=== PATIENT | male | born 1955 | race Caucasian/White ===

== ENCOUNTER 2018-01-16 12:25 | Day surgery (SDC) | payer MEDICARE, BC ==
[2018-01-15 11:00] LABS: BASOPHILS % (AUTO) 0.4 % (0-1); EOSINOPHILS # (AUTO) 0.3 X10'3 (0-0.9); EOSINOPHILS % (AUTO) 3.8 % (0-6); LYMPHOCYTES # (AUTO) 1.9 X10'3 (1.1-4.8); LYMPHOCYTES % (AUTO) 28.2 % (21-51); MEAN CORPUSCULAR HEMOGLOBIN 29.8 PG (27.0-31.0); MEAN CORPUSCULAR HGB CONC 33.5 % (33.0-36.5); MEAN CORPUSCULAR VOLUME 88.9 FL (78-98); MEAN PLATELET VOLUME 9.9 FL (7.4-10.4); MONOCYTES # (AUTO) 0.7 X10'3 (0-0.9); MONOCYTES % (AUTO) 11.1 % (2-12); NEUTROPHILS # (AUTO) 3.8 X10'3 (1.8-7.7); NEUTROPHILS % (AUTO) 56.5 % (42-75); PRE OP HEMOGLOBIN 15.1 g/dL (14.0-17.9); PRE OP PLATELET COUNT 198 X10'3 (140-440); RED BLOOD COUNT 5.06 X10'6 (4.70-6.10); RED CELL DISTRIBUTION WIDTH 13.9 % (11.5-14.5)
[2018-01-15 11:21] LABS: ALBUMIN 3.7 G/DL (3.4-5.0); ALBUMIN/GLOBULIN RATIO 1.1 (1.1-1.5); ALKALINE PHOSPHATASE 67 IU/L (46-116); BLOOD UREA NITROGEN 12 MG/DL (7-18); BUN/CREATININE RATIO 14.3 (5.4-32.0); CALCIUM 9.4 MG/DL (8.5-10.1); CHLORIDE 101 MMOL/L (99-107); CREATININE 0.84 MG/DL (0.60-1.10); PRE OP ALT 32 U/L (30-65); PRE OP ANION GAP 6 (8-16); PRE OP AST 18 U/L (10-37); PRE OP BILIRUB, TOTAL 0.4 MG/DL (0.0-1.0); PRE OP GLUCOSE 95 MG/DL (70-104); PRE OP POTASSIUM 4.2 MMOL/L (3.4-5.1); PRE OP SODIUM 138 MMOL/L (135-145); TOTAL CARBON DIOXIDE 31.3 MMOL/L (24-32); TOTAL PROTEIN 7.1 G/DL (6.4-8.2); eGFR > 90 ML/MIN
[~2018-01-16] VITALS: Ht 175.3 cm; Wt 117.4 kg
[2018-01-16] VITALS (7 sets, daily range): BP systolic 121–138; BP diastolic 58–80
[~2018-01-16 12:25] MED LIST: GABA-532 PO; HYDR-3686 PO; HYDR-565 PO; LANS30CA56 PO; LEVO75TA PO; OXYB5TAB11 PO; SIMV20TA5 PO; ceFAZolin 2gm in dextrose, iso 100 ML IV ONE; famotidine 20mg tablet PO ONE; ringers solution, lacted 1,000 ML IV SCH; vancomycin inj 1,500 MG in normal saline 300ml IV soln IV ONE
[2018-01-16] MEDS ORDERED: LIDOcaine 1% (10mg/ml) 2ml vial ONE (12:35)
[2018-01-16] MEDS ORDERED: ROPIVAcaine 0.5% (5mg/ml) 30ml vial ONE (13:50)
[2018-01-16] MEDS ORDERED: sevoflurane 250ml liquid IH ONE (15:20)
[2018-01-16] MEDS ORDERED: ondansetron/PF 4mg/2ml inj ONE (15:20)
[2018-01-16] MEDS ORDERED: fentaNYL/PF 50MCG/1 ML 2ML syringe ONE (15:26)
[2018-01-16] MEDS ORDERED: midazolam 2 mg/2 ml injection ONE (15:26)
[2018-01-16] MEDS ORDERED: ringers solution, lacted 1,000 ML IV SCH (15:57)
[2018-01-16] MEDS ORDERED: proCHLORperazine 10 MG/2 ml inj IV PRN (16:00)
[2018-01-16] MEDS ORDERED: morphine 4 MG/ML inj SYRINge IV PRN ×2 (16:00)
[2018-01-16] MEDS ORDERED: ondansetron/PF 4mg/2ml inj IV PRN (16:00)
[2018-01-16] MEDS ORDERED: meperidine/PF 25mg/ml syringe IV PRN ×3 (16:00)
[2018-01-16] MEDS ORDERED: propofol inj 20 ML IV ONE (16:20)
[2018-01-16] MEDS ORDERED: LIDOcaine 2% (20mg/ml) 5ml vial ONE (16:20)
== END 2018-01-16 17:15 | disposition home or self-care (01) ==
LOC: PAS 12:25
PROVIDERS: ATTEND Orthopaedic Surgery
DX: M23.221 Derangement of posterior horn of medial meniscus due to old tear or injury, right knee (principal); M23.261 Derangement of other lateral meniscus due to old tear or injury, right knee; M17.11 Unilateral primary osteoarthritis, right knee; M65.861 Other synovitis and tenosynovitis, right lower leg; M25.761 Osteophyte, right knee; I10 Essential (primary) hypertension; E78.5 Hyperlipidemia, unspecified; I25.2 Old myocardial infarction; G89.29 Other chronic pain; E03.9 Hypothyroidism, unspecified; K21.9 Gastro-esophageal reflux disease without esophagitis; F32.9 Major depressive disorder, single episode, unspecified; Z98.84 Bariatric surgery status; Z79.891 Long term (current) use of opiate analgesic; Z90.89 Acquired absence of other organs; Z98.890 Other specified postprocedural states; Z79.899 Other long term (current) drug therapy
CPT/HCPCS: 29880; 36415; 80053; 84443; 85025; 93005; A6449; J0690; J2001; J2250; J2405; J2704; J2795; J3010; J3370; J3490; J7030; J7120; A7000

== ENCOUNTER 2022-02-08 08:00 | Inpatient (IN) | payer MEDICARE, BC ==
[2022-01-26 15:04] LABS: BASOPHILS # (AUTO) 0.1 X10'3 (0-0.2); EOSINOPHILS # (AUTO) 0.2 X10'3 (0-0.9); EOSINOPHILS % (AUTO) 3.3 % (0-6); LYMPHOCYTES # (AUTO) 2.1 X10'3 (1.1-4.8); LYMPHOCYTES % (AUTO) 29.3 % (21-51); MEAN CORPUSCULAR HEMOGLOBIN 29.7 PG (27.0-31.0); MEAN CORPUSCULAR HGB CONC 33.6 g/dL (33.0-36.5); MEAN CORPUSCULAR VOLUME 88.4 FL (78-98); MEAN PLATELET VOLUME 8.3 FL (7.4-10.4); MONOCYTES # (AUTO) 0.7 X10'3 (0-0.9); MONOCYTES % (AUTO) 9.5 % (2-12); NEUTROPHILS # (AUTO) 4.2 X10'3 (1.8-7.7); NEUTROPHILS % (AUTO) 56.9 % (42-75); PRE OP HEMATOCRIT 40.8 % (42.0-52.0); PRE OP HEMOGLOBIN 13.7 g/dL (14.0-17.9); PRE OP PLATELET COUNT 244 X10'3 (140-440); RED BLOOD COUNT 4.62 X10'6 (4.70-6.10); RED CELL DISTRIBUTION WIDTH 14.5 % (11.5-14.5)
[2022-01-26 15:18] LABS: ALBUMIN 3.7 G/DL (3.4-5.0); ALBUMIN/GLOBULIN RATIO 1.1 (1.1-1.5); ALKALINE PHOSPHATASE 66 IU/L (46-116); BLOOD UREA NITROGEN 12 MG/DL (7-18); BUN/CREATININE RATIO 18.2 (5.4-32.0); CALCIUM 8.9 MG/DL (8.5-10.1); CHLORIDE 106 MMOL/L (99-107); CREATININE 0.66 MG/DL (0.60-1.10); PRE OP ALT 11 U/L (30-65); PRE OP ANION GAP 9 (8-16); PRE OP AST 12 U/L (10-37); PRE OP BILIRUB, TOTAL 0.4 MG/DL (0.0-1.0); PRE OP GLUCOSE 90 MG/DL (70-104); PRE OP POTASSIUM 3.7 MMOL/L (3.4-5.1); PRE OP SODIUM 143 MMOL/L (135-145); TOTAL CARBON DIOXIDE 28.4 MMOL/L (24-32); TOTAL PROTEIN 7.1 G/DL (6.4-8.2); eGFR > 90 ML/MIN
[~2022-02-08] VITALS: Ht 172.7 cm; Wt 94.3 kg
[2022-02-08] VITALS (23 sets, daily range): BP systolic 92–133; BP diastolic 52–70
[~2022-02-08 08:00] MED LIST changes: +ALPR-624 PO; +CYCL-1 PO; -HYDR-3686 PO; +HYDR-4353 PO; -HYDR-565 PO; -LANS30CA56 PO; +LOPE2CAP PO; -OXYB5TAB11 PO; +OXYB5TAB16 PO; -SIMV20TA5 PO; -ceFAZolin 2gm in dextrose, iso 100 ML IV ONE; +ceFAZolin inj. 2,000 MG in dextrose 5%-water 100 ML IV ONE; +tranexamic acid inj. 1,000 MG in 0.7% saline 100 ML PMX IV ONE; +vancomycin 1,500 MG in NS 300ml IV soln IV ONE; -vancomycin inj 1,500 MG in normal saline 300ml IV soln IV ONE
--- NOTE | 2022-02-08 08:30 | NUR ---
PT WAS ABLE TO COMPLETE ALL 5 SHOWERS WITH OINTMENT ORDERED, DID NOT VIEW ONLINE INFO, +PULSE TO BLE
[2022-02-08] MEDS ORDERED: HYDROcodone/acetaminophen 10/325mg tab PO STA (09:34)
[2022-02-08] MEDS ORDERED: epiNEPHrine 1 mg/ml inj ONE (10:26)
[2022-02-08] MEDS ORDERED: ketorolac trometh. 30mg/ml inj. ONE (10:26)
[2022-02-08] MEDS ORDERED: ROPIVAcaine 0.5% (5mg/ml) 30ml vial ONE ×2 (10:27→13:50)
[2022-02-08] MEDS ORDERED: vancomycin 1,000mg inj ONE (10:27)
[2022-02-08] MEDS ORDERED: morphine 10mg/ml inj. ONE (10:27)
[2022-02-08] MEDS ORDERED: tetracaine 1% (10mg/ml) pres. free inj. ONE (10:57)
[2022-02-08] MEDS ORDERED: fentaNYL/PF 50MCG/1 ML 2ML syringe ONE (11:01)
[2022-02-08] MEDS ORDERED: MIDAZolam 1 MG/ML 5ML VIAL ONE (11:01)
[2022-02-08] MEDS ORDERED: morphine 2 MG/ML inj. syringe IV PRN (12:10)
[2022-02-08] MEDS ORDERED: meperidine/PF 25mg/ml syringe IV PRN ×3 (12:10)
[2022-02-08] MEDS ORDERED: ondansetron/PF 4mg/2ml inj IV PRN ×2 (12:10→14:50)
[2022-02-08] MEDS ORDERED: proCHLORperazine 10 MG/2 ml inj IV PRN (12:10)
[2022-02-08] MEDS ORDERED: morphine 4 MG/ML inj SYRINge IV PRN (12:10)
[2022-02-08] MEDS ORDERED: ROPIVAcaine 0.2% (10 MG/5 ML) BOLUS INJECTION ADDCANAL PRN (12:10)
[2022-02-08] MEDS ORDERED: ringers solution, lacted 1,000 ML IV SCH (12:10)
[2022-02-08] MEDS ORDERED: propofol inj 20 ML IV ONE ×2 (13:50→13:51)
--- NOTE | 2022-02-08 14:11 | NUR ---
Received from OR via [facility] , accompanied by Anesthesiologist SIMÓN and report given by Anesthesiolgist. PATIENT WITH ANTERIOR RIGHT KNEE WRAP THAT IS CDI. + DP PRESENT. DRESSING IS KNEE WRAP WITH POWDER PACK PRESENT. T 8 SENSATION LEVEL AT THIS TIME FROM SPINAL ANESTHESIA. Addendum: 02/08/22 at 1434 by Amos Aburto RN, RN Amended: Links added.
[2022-02-08] MEDS: ROPIVAcaine 0.2%/PF PUMP/bolus 545 ML ADDCANAL SCH (14:35)
[2022-02-08] MEDS ORDERED: naloxone 0.4 mg/ml inj IV PRN (14:50)
[2022-02-08] MEDS ORDERED: oxyCODONE IR 5mg (immed. release) tablet PO PRN (14:50)
[2022-02-08] MEDS ORDERED: HYDROmorphone 1 mg/ml syringe IV PRN (14:50)
[2022-02-08] MEDS ORDERED: HYDROmorphone inj. 0.5 MG/0.5 ML DISP.SYRIN IV PRN (14:50)
[2022-02-08] MEDS ORDERED: acetaminophen 325mg tablet PO PRN ×2 (14:50)
[2022-02-08] MEDS ORDERED: diphenhydrAMINE 25mg capsule PO PRN ×2 (14:50)
[2022-02-08] MEDS ORDERED: bisacodyl 10mg suppository rectal RC PRN (14:50)
[2022-02-08] MEDS ORDERED: magnesium hydroxide 30ml (MOM) UD suspension PO PRN (14:50)
[2022-02-08] MEDS: potassium cl 20mEq in 1/2 NS 1,000 ML IV SCH ×2 (14:50→22:50)
--- NOTE | 2022-02-08 16:01 | NUR ---
REPORT GIVEN AND ALL QUESTIONS ANSWERED. PATIENT TRANSFERRED TO SURG/ORTHO . LABELED BELONGINGS PRESENT AND DELIVERED TO ROOM. RN PRESENT ALL CRITERIA FOR TRANSFER BACK TO THE FLOOR HAS BEEN ACHIEVED. VSS. PAIN AT A TOLERABLE LEVEL. BED LOW, CALL LIGHT PRESENT AND 2 RAILS DOWN. RN AWARE THAT PATIENT HAS ARRIVED. TO ACCEPT CARE OF PATIENT.ONE BAG OF BELONGINGS PRESENT AND GLASSES ON PATIENT FACE. JOHN QUIGLEY PRESENT TO ACCEPT CARE OF PATIENT. Addendum: 02/08/22 at 1617 by Amos Lou - JOHN LOPEZ Amended: Links added.
[2022-02-08] MEDS ORDERED: HYDROcodone/acetaminophen 10/325mg tab PO PRN (16:35)
[2022-02-08] MEDS ORDERED: loperamide 2mg capsule PO PRN (16:35)
[2022-02-08] MEDS ORDERED: tranexamic acid inj. 940 MG in normal saline 100ml IV soln 100 ML IV ONE (17:00)
[2022-02-08] MEDS ORDERED: gabapentin 300mg capsule PO SCH (17:00)
--- NOTE | 2022-02-08 18:25 | NUR ---
Problems reprioritized. Patient report given, questions answered & plan of care reviewed with Mely.
[2022-02-08] MEDS: ceFAZolin/D5W- 1GM premix 50 ML IV SCH (18:40)
[2022-02-08] MEDS: ketorolac trometh. 30mg/ml inj. IV SCH (19:31)
[2022-02-08] MEDS: sennosides 8.6mg tablet PO SCH (19:35)
[2022-02-08] MEDS: acetaminophen 325mg tablet PO SCH (19:37)
[2022-02-08] MEDS: oxybutynin 5mg tablet PO SCH (19:38)
[2022-02-08] MEDS ORDERED: vancomycin/NS 1 GM ADD-VANTAGE 250 ML IV SCH (20:00)
[2022-02-08] MEDS: cyclobenzaprine 10mg tablet PO SCH (21:46)
[2022-02-08] MEDS: ALPRAZolam 0.5mg tablet PO SCH (21:46)
[2022-02-08] MEDS: gabapentin 300mg capsule PO SCH (21:46)
[2022-02-09] MEDS: ceFAZolin/D5W- 1GM premix 50 ML IV SCH (01:04)
[2022-02-09] MEDS: ketorolac trometh. 30mg/ml inj. IV SCH ×3 (02:09→13:43)
[2022-02-09] MEDS: acetaminophen 325mg tablet PO SCH ×4 (02:10→19:23)
[2022-02-09] MEDS: potassium cl 20mEq in 1/2 NS 1,000 ML IV SCH ×3 (03:51→19:41)
[2022-02-09] MEDS: oxyCODONE IR 5mg (immed. release) tablet PO PRN ×3 (04:54→21:27)
[2022-02-09 06:49] VITALS: BP 118/60
--- NOTE | 2022-02-09 06:49 | NUR ---
RECEIVED REPORT FROM KATERINA BORGES RN
[2022-02-09] MEDS: levoTHYROXINE 75mcg tablet PO SCH (08:48)
[2022-02-09] MEDS: gabapentin 300mg capsule PO SCH ×3 (08:48→21:25)
[2022-02-09] MEDS: cyclobenzaprine 10mg tablet PO SCH ×3 (08:48→21:26)
[2022-02-09] MEDS: enoxaparin 40mg/0.4ml syringe SQ SCH (08:50)
[2022-02-09 10:29] VITALS: BP 110/60
[2022-02-09 10:49] LABS: BASOPHILS % (AUTO) 0.5 % (0-1); EOSINOPHILS # (AUTO) 0.4 X10'3 (0-0.9); EOSINOPHILS % (AUTO) 4.6 % (0-6); HEMATOCRIT 35.3 % (42.0-52.0); HEMOGLOBIN 11.9 g/dl (14.0-17.9); LYMPHOCYTES # (AUTO) 0.9 X10'3 (1.1-4.8); LYMPHOCYTES % (AUTO) 10.8 % (21-51); MEAN CORPUSCULAR HEMOGLOBIN 29.9 PG (27.0-31.0); MEAN CORPUSCULAR HGB CONC 33.7 g/dL (33.0-36.5); MEAN CORPUSCULAR VOLUME 88.8 FL (78-98); MEAN PLATELET VOLUME 8.7 FL (7.4-10.4); NEUTROPHILS # (AUTO) 5.8 X10'3 (1.8-7.7); NEUTROPHILS % (AUTO) 72.1 % (42-75); PLATELET COUNT 201 X10'3 (140-440); RED BLOOD COUNT 3.97 X10'6 (4.70-6.10); RED CELL DISTRIBUTION WIDTH 14.5 % (11.5-14.5)
[2022-02-09 11:02] LABS: ALBUMIN 2.7 G/DL (3.4-5.0); ANION GAP 6 (8-16); BLOOD UREA NITROGEN 13 MG/DL (7-18); BUN/CREATININE RATIO 18.8 (5.4-32.0); CALCIUM 8.3 MG/DL (8.5-10.1); CHLORIDE 104 MMOL/L (99-107); CREATININE 0.69 MG/DL (0.60-1.10); GLUCOSE 89 MG/DL (70-104); POTASSIUM 4.1 MMOL/L (3.5-5.1); SODIUM 137 MMOL/L (135-145); TOTAL CARBON DIOXIDE 26.8 MMOL/L (24-32); eGFR > 90 ML/MIN
--- NOTE | 2022-02-09 12:48 | NUR ---
Joint surgery consult: Pt s/p R knee surgery this admit hx Cerebral Palsy uses cane in addition to bariatric surgery per EMR. Pt/SO seen by RD for written/verbal high protein diet ed w/ RD contact information provided. Pt unsure which bariatric surgery he had though reports takes routine MVI/mineral supplement and drinks premier proteins at home. RD encouraged pt/SO to contact dietitian's office if further questions/concerns. Addendum: 02/09/22 at [address] Amended: Links added.
[2022-02-09 13:20] VITALS: BP 87/67
--- NOTE | 2022-02-09 16:29 | NUR ---
lau catheter discontinued
[2022-02-09 18:00] VITALS: BP 107/59
--- NOTE | 2022-02-09 18:48 | NUR ---
report given to Dianna Bustamante RN
[2022-02-09] MEDS: sennosides 8.6mg tablet PO SCH (19:24)
[2022-02-09] MEDS: celeCOXIB 100mg capsule PO SCH (19:24)
[2022-02-09] MEDS: oxybutynin 5mg tablet PO SCH (19:24)
[2022-02-09] MEDS: ALPRAZolam 0.5mg tablet PO SCH (21:26)
[2022-02-09 22:00] VITALS: BP 118/62
[2022-02-10] MEDS: acetaminophen 325mg tablet PO SCH ×3 (02:00→13:47)
[2022-02-10 06:00] VITALS: BP 123/67
--- NOTE | 2022-02-10 06:30 | NUR ---
Problems reprioritized. Patient report given, questions answered & plan of care reviewed with SAY LOPEZ.
[2022-02-10] MEDS: potassium cl 20mEq in 1/2 NS 1,000 ML IV SCH (06:50)
--- NOTE | 2022-02-10 06:50 | NUR ---
Patient in room ORTHO 4020. I have received report from Dianna Bustamante RN and had the opportunity to ask questions and assume patient care.
[2022-02-10] MEDS: oxyCODONE IR 5mg (immed. release) tablet PO PRN (06:57)
[2022-02-10] MEDS: levoTHYROXINE 75mcg tablet PO SCH (08:35)
[2022-02-10] MEDS: celeCOXIB 100mg capsule PO SCH ×2 (08:36→20:57)
[2022-02-10] MEDS: gabapentin 300mg capsule PO SCH ×3 (08:37→21:02)
[2022-02-10] MEDS: cyclobenzaprine 10mg tablet PO SCH ×3 (08:37→20:56)
[2022-02-10] MEDS: enoxaparin 40mg/0.4ml syringe SQ SCH (08:38)
[2022-02-10] MEDS ORDERED: acetaminophen 325mg tablet PO PRN (14:50)
[2022-02-10 18:00] VITALS: BP 117/68
--- NOTE | 2022-02-10 18:00 | NUR ---
YARD ATTENDANT documentation: I have reviewed and agree with all interventions, assessments performed and documented by Trinidad Box LVN .
--- NOTE | 2022-02-10 18:27 | NUR ---
Problems reprioritized. Patient report given, questions answered & plan of care reviewed with Grace LOPEZ.
--- NOTE | 2022-02-10 18:38 | NUR ---
Patient in room ORTHO 4020. I have received report from SAY GARBER and had the opportunity to ask questions and assume patient care.
[2022-02-10] MEDS: ROPIVAcaine 0.2%/PF PUMP/bolus 545 ML ADDCANAL SCH (18:48)
[2022-02-10] MEDS: sennosides 8.6mg tablet PO SCH (20:56)
[2022-02-10] MEDS: ALPRAZolam 0.5mg tablet PO SCH (20:57)
[2022-02-10] MEDS: oxybutynin 5mg tablet PO SCH (20:57)
[2022-02-11 06:00] VITALS: BP 134/76
--- NOTE | 2022-02-11 06:30 | NUR ---
Problems reprioritized. Patient report given, questions answered & plan of care reviewed with SRINIVAS LOPEZ.
--- NOTE | 2022-02-11 06:35 | NUR ---
Patient in room ORTHO 4020. I have received report from MARIAELENA LOPEZ and had the opportunity to ask questions and assume patient care.
[2022-02-11] MEDS: celeCOXIB 100mg capsule PO SCH (07:40)
[2022-02-11] MEDS: cyclobenzaprine 10mg tablet PO SCH (07:40)
[2022-02-11] MEDS: levoTHYROXINE 75mcg tablet PO SCH (07:42)
[2022-02-11] MEDS: gabapentin 300mg capsule PO SCH (07:42)
[2022-02-11] MEDS: oxyCODONE IR 5mg (immed. release) tablet PO PRN (07:42)
[2022-02-11] MEDS: enoxaparin 40mg/0.4ml syringe SQ SCH (07:43)
[2022-02-11 10:00] VITALS: BP 106/67
--- NOTE | 2022-02-11 10:25 | NUR ---
CALLED REPORT TO [facility], AND TALKED TO DANYELLE LOPEZ.
--- NOTE | 2022-02-11 10:50 | NUR ---
PATIENT LEFT WITH TRANSPORT TO [facility] WITH BELONGINGS CANE, PHONE AND CLOTHES.
== END 2022-02-11 10:50 | DRG 470 ==
LOC: PAS IN 08:00 → ORTHO 4S 16:10
PROVIDERS: ADMIT Orthopaedic Surgery; ATTEND Orthopaedic Surgery
PROC: 3E0T3BZ Introduction of Anesthetic Agent into Peripheral Nerves and Plexi, Percutaneous Approach (ICD-10-PCS; 2022-02-08)
PROC: 0SRC0J9 Replacement of Right Knee Joint with Synthetic Substitute, Cemented, Open Approach (ICD-10-PCS; principal; 2022-02-08 11:01)
DX: M17.11 Unilateral primary osteoarthritis, right knee (principal)
CPT/HCPCS: 36415; 73560; 80048; 80053; 82948; 85025; 87081; 97034; 97110; 97116; 97162; 97530; A4215; A6446; A7000; C1713; C1758; C1776; C9250; G0378; J0171; J0690; J1650; J1885; J2250; J2274; J2704; J2795; J3010; J3370; J3480; J3490; J7040; J7060; J7120; Q0163

== ENCOUNTER 2022-11-23 12:50 | Emergency (ER) | payer MEDICARE, BC ==
[~2022-11-23] VITALS: Ht 172.7 cm; Wt 79.5 kg
[~2022-11-23 12:50] MED LIST changes: -ALPR-624 PO; +ALPR1TAB2 PO; -GABA-532 PO; +GABA600T13 PO; +OMEP40CA21 PO; +OXYB15TA19 PO; -OXYB5TAB16 PO; +SIMV-42 PO; -ceFAZolin inj. 2,000 MG in dextrose 5%-water 100 ML IV ONE; -famotidine 20mg tablet PO ONE; -ringers solution, lacted 1,000 ML IV SCH; -tranexamic acid inj. 1,000 MG in 0.7% saline 100 ML PMX IV ONE; -vancomycin 1,500 MG in NS 300ml IV soln IV ONE
--- NOTE | 2022-11-23 13:37 | NUR ---
PT PRESENTS WITH CHRONIC BACK PAIN STATES " MY NURSE THAT WAS AT MY HOUSE TODAY SAID I SHOULD COME IN AND GET REFERRAL TO PHYSICAL THERAPY."
--- NOTE | 2022-11-23 16:02 | NUR ---
TIM JEFFREY CALLED [facility] REGARDING TRANSPORTATION HOME FOR PATIENT. [facility] REPORTS HAVING NO AVAILABLE UNITS TO TRANSPORT PATIENT. TMI JEFFREY CALLED [facility] ([place]) FOR TRANSPORATION. [facility] STATED THEY WOULD CONTACT US BACK WHEN THEY WERE AVAILABLE.
--- NOTE | 2022-11-23 16:05 | NUR ---
[facility] EST TIME OF ARRIVAL 1830 FOR TRANSPORTATION OF PATIENT.
[2022-11-23 17:33] VITALS: BP 117/68
== END 2022-11-23 17:35 | disposition home or self-care (01) ==
LOC: ER 12:51
DX: G89.29 Other chronic pain (principal); M54.9 Dorsalgia, unspecified; R53.1 Weakness; Z79.899 Other long term (current) drug therapy; Z79.1 Long term (current) use of non-steroidal anti-inflammatories (NSAID); Z79.2 Long term (current) use of antibiotics
CPT/HCPCS: 99284

== ENCOUNTER 2023-05-15 10:51 | Inpatient (IN) | payer MEDICARE, BC ==
[~2023-05-15] VITALS: Ht 172.7 cm; Wt 102.3 kg
[~2023-05-15 10:51] MED LIST changes: +ALPR0.5T8 PO; +ALPR0.5T9 PO; -ALPR1TAB2 PO; +CHOL10008 PO; +CYAN-50 PO; -CYCL-1 PO; -HYDR-4353 PO; -LEVO75TA PO; +LEVO88TA7 PO; +MULT-1085 PO; +OMEP20CA16 PO; -OMEP40CA21 PO; -SIMV-42 PO; +SIMV-45 PO
--- NOTE | 2023-05-15 14:25 | NUR ---
Rec'd referral that pt is requesting to return to his rehab facility from which he was just dc'd a few days ago. Per EMR, pt was sent to [facility] in 01/2023, contacted their liason to see if pt was w/ them until recently. Awaiting response.
--- NOTE | 2023-05-15 15:12 | NUR ---
SPOKE WITH PT'S DAUGHTER, BEA, PLEASE CALL HER FOR PT PICKUP AT TIME OF DISCHARGE. INFO IN DEMOGRAPHICS
--- NOTE | 2023-05-15 15:22 | NUR ---
Rec'd callback from Cassandra at [facility]. She confirms that pt just dc'd from them late last week after being there since 02/07/2023. She also informs me that pt has only 5 rehab day benefit left. Despite this they are willing to take him back, their business office will work w/ pt's to apply for [employer] for LT care. She does not have a male bed this afternoon but is 99% sure she will have one tomorrow and can take him then. Went to ER and met w/ pt at the bedside. Pt appears severely debilitated, c/o of extreme pain, worse it's been for a long time. He also reports he had a recent fall from his bed since his discharge where he was unable to get up and the fire dept was called to get him back in bed. Pain has progressively gotten worse since then. I spoke w/ pt's nurse Jeronimo and informed him (in case he didn't know) of pt's recent fall and asked him to speak w/ MD regarding some imaging studies to just to make sure no new issues have occurred. Jeronimo says he will. Called Cassandra back at [facility] and made her aware of my interview w/ zack pt. She remains agreeable to taking pt back tomorrow once her male bed opens up. Continue to monitor.
--- NOTE | 2023-05-15 15:25 | NUR ---
FORTUNATO WHITMORE ADVISES THAT [facility] IS AGREEAABLE IN TAKING THE PT BACK TOMORROW, PROVIDER ORDERED HEAD CT TO R/O ACUTE CHANGES D/T REPORTED FALL AT HOME
[2023-05-15] MEDS ORDERED: HYDROcodone/acetaminophen 10/325mg tab PO ONE (18:20)
[2023-05-15 20:26] LABS: BILIRUBIN,URINE NEGATIVE (Neg); CLARITY,URINE CLOUDY (Clear); COLOR,URINE YELLOW (Yellow); GLUCOSE, URINE NEGATIVE (Neg); KETONES,URINE NEGATIVE (Neg); LEUKOCYTE ESTERASE ,URINE NEGATIVE (Neg); NITRITES, URINE NEGATIVE (Neg); OCCULT BLOOD,URINE NEGATIVE (Neg); PH,URINE 5.5 (4.8-8.0); PROTEIN,URINE TRACE mg/dl (Neg)
[2023-05-15 20:40] LABS: UA COLLECTION TYPE CLN CATCH MIDSTREAM
[2023-05-15 20:41] LABS: BACTERIA,URINE 4+ /HPF (Neg); RBC,URINE 0-2 /HPF (0-2)
[2023-05-15 20:42] LABS: MUCUS STRANDS FEW /LPF (Neg); TRANSITIONAL EPI CELLS,URINE FEW /HPF
[2023-05-15 20:43] LABS: SQUAMOUS EPITHELIAL CELL,UR MODERATE /LPF (FEW)
[2023-05-15 20:50] LABS: URINE AMPHETAMINE SCREEN NEGATIVE (Neg); URINE BARBITUATE SCREEN NEGATIVE (Neg); URINE BENZODIAZEPINES SCREEN POSITIVE (Neg); URINE CANNABINOID SCREEN POSITIVE (Neg); URINE COCAINE SCREEN NEGATIVE (Neg); URINE OPIATE SCREEN POSITIVE (Neg); URINE PHENCYCLIDINE SCREEN NEGATIVE (Neg)
[2023-05-15 21:00] LABS: BASOPHILS # (AUTO) 0.1 X10'3 (0-0.2); BASOPHILS % (AUTO) 1.3 % (0-1); EOSINOPHILS # (AUTO) 0.2 X10'3 (0-0.9); EOSINOPHILS % (AUTO) 3.5 % (0-6); HEMATOCRIT 37.1 % (42.0-52.0); HEMOGLOBIN 12.4 g/dl (14.0-17.9); LYMPHOCYTES # (AUTO) 1.9 X10'3 (1.1-4.8); LYMPHOCYTES % (AUTO) 32.1 % (21-51); MEAN CORPUSCULAR HEMOGLOBIN 29.5 PG (27.0-31.0); MEAN CORPUSCULAR HGB CONC 33.4 g/dL (33.0-36.5); MEAN CORPUSCULAR VOLUME 88.3 FL (78-98); MONOCYTES # (AUTO) 0.7 X10'3 (0-0.9); MONOCYTES % (AUTO) 12.6 % (2-12); NEUTROPHILS % (AUTO) 50.5 % (42-75); PLATELET COUNT 343 X10'3 (140-440); RED BLOOD COUNT 4.19 X10'6 (4.70-6.10); RED CELL DISTRIBUTION WIDTH 14.4 % (11.5-14.5); WHITE BLOOD COUNT 5.9 X10'3 (4.5-11.0)
[2023-05-15 21:15] LABS: ALANINE AMINOTRANSFERASE 19 U/L (12-78); ALBUMIN 2.9 G/DL (3.4-5.0); ALBUMIN/GLOBULIN RATIO 0.7 (1.1-1.5); ALKALINE PHOSPHATASE 66 IU/L (46-116); ANION GAP 5 (8-16); ASPARTATE AMINO TRANSFERASE 28 U/L (10-37); BILIRUBIN,TOTAL 0.6 MG/DL (0.1-1.0); BLOOD UREA NITROGEN 13 MG/DL (7-18); BUN/CREATININE RATIO 22.4 (10.0-20.0); CALCIUM 9.2 MG/DL (8.5-10.1); CHLORIDE 103 MMOL/L (99-107); CREATININE 0.58 MG/DL (0.60-1.10); GLUCOSE 107 MG/DL (70-104); POTASSIUM 3.1 MMOL/L (3.5-5.1); SODIUM 140 MMOL/L (135-145); TOTAL CARBON DIOXIDE 31.6 MMOL/L (24-32); TOTAL PROTEIN 7.1 G/DL (6.4-8.2); eCRCL 115 ML/MIN; eGFR > 90 ML/MIN
[2023-05-15 21:21] LABS: ETHANOL < 10 MG/DL (<10)
[2023-05-16] MEDS ORDERED: morphine 2 MG/ML inj. syringe IV PRN ×3 (00:55→02:40)
[2023-05-16] MEDS ORDERED: ondansetron/PF 4mg/2ml inj IV PRN (02:40)
[2023-05-16] MEDS ORDERED: diphenhydrAMINE 25mg capsule PO PRN (02:40)
[2023-05-16] MEDS ORDERED: potassium Cl 40MEQ/1/2NS 520ml 520 ML IV PRN (02:40)
[2023-05-16] MEDS ORDERED: ondansetron 4mg rapidly disintigrating tab PO PRN (02:40)
[2023-05-16] MEDS ORDERED: potassium Cl 20 mEq SR tablet PO PRN (02:40)
[2023-05-16] MEDS ORDERED: normal saline 1000ml 1,000 ML IV SCH (02:40)
[2023-05-16] MEDS ORDERED: acetaminophen 325mg tablet PO PRN ×2 (02:40)
[2023-05-16] MEDS ORDERED: mag hydrox/Alum hydrox/simeth 30ml oral suspension PO PRN (02:40)
[2023-05-16] MEDS ORDERED: diphenhydrAMINE 50 mg/ml inj IV PRN (02:40)
[2023-05-16] MEDS ORDERED: magnesium hydroxide 30ml (MOM) UD suspension PO PRN (02:40)
[2023-05-16] MEDS ORDERED: acetaminophen 650mg rectal suppository RC PRN (02:40)
[2023-05-16] MEDS ORDERED: potassium Cl 20mEq in NS 1,000 ML IV SCH (02:40)
[2023-05-16] MEDS ORDERED: bisacodyl 10mg suppository rectal RC PRN (02:40)
[2023-05-16] MEDS ORDERED: temazepam 15mg capsule PO STA (03:19)
[2023-05-16 07:00] VITALS: BP 109/67; PULSE 85; RESP 16; TEMP 97.8; O2SAT 95
--- NOTE | 2023-05-16 07:09 | NUR ---
Patient in room ED 16. I have received report from Doc del toro and had the opportunity to ask questions and aWAITING PATIENTS ARRIVAL
--- NOTE | 2023-05-16 07:15 | NUR ---
Report called to JOHN Ragland on Ortho. Patient transferred upstairs on [facility] with all belongings.
[2023-05-16] MEDS ORDERED: K and/or MAG REPLACEMENT MC SCH (08:00)
[2023-05-16] MEDS ORDERED: CefTRIAXone/D5W-Rocephin 1gm 50 ML IV SCH (08:00)
[2023-05-16] MEDS ORDERED: docusate sod 100mg capsule PO SCH (08:00)
[2023-05-16] MEDS ORDERED: heparin, porcine 5000 units/ml vial SQ SCH (08:00)
[2023-05-16] MEDS: midodrine 5mg tablet PO SCH ×2 (08:42→12:33)
[2023-05-16] MEDS: potassium Cl 20 mEq SR tablet PO PRN ×2 (08:47→14:09)
[2023-05-16] MEDS: HYDROcodone/acetaminophen 5mg/325mg tablet PO PRN ×2 (08:48→14:09)
[2023-05-16 09:37] LABS: APTT 33 SECONDS (22-32); PROTHROMBIN TIME 10.9 SECONDS (9.0-12.0)
[2023-05-16 10:00] VITALS: BP 117/51; PULSE 70; RESP 16; TEMP 97.9; O2SAT 94
[2023-05-16 10:47] LABS: FREE T4 (FREE THYROXINE) 1.01 NG/DL (0.73-1.40); MAGNESIUM 2.3 MG/DL (1.5-2.4); PHOSPHORUS 3.2 MG/DL (2.3-4.5); POTASSIUM 3.1 MMOL/L (3.5-5.1); THYROID STIMULATING HORMONE 16.92 ulU/ml (0.34-4.50)
[2023-05-16] MEDS ORDERED: loperamide 2mg capsule PO PRN (11:45)
--- NOTE | 2023-05-16 12:36 | NUR ---
Immodium given for copious amounts of brownish soft diarrhea. Dr Baker aware
[2023-05-16 14:09] VITALS: RESP 16
--- NOTE | 2023-05-16 15:11 | NUR ---
Patient given Immodium and norco x2 during shift. Appeared to slow down with BM's. Report called to Radha GARBER at [facility]. patient transported via [facility] and [employer] personnel to [facility] in stable condition. had been present during shift.
[2023-05-16] MEDS ORDERED: temazepam 15mg capsule PO PRN (21:00)
== END 2023-05-16 14:15 | DRG 641 ==
LOC: ER 10:51 → ED HOLD 05-16 02:42 → ORTHO 4S 05-16 07:47
PROVIDERS: ADMIT Family Medicine; ATTEND Internal Medicine
DX: E87.6 Hypokalemia (principal); N39.0 Urinary tract infection, site not specified; I50.32 Chronic diastolic (congestive) heart failure; D64.9 Anemia, unspecified; E03.9 Hypothyroidism, unspecified; E78.5 Hyperlipidemia, unspecified; E86.1 Hypovolemia; E88.09 Other disorders of plasma-protein metabolism, not elsewhere classified; F41.1 Generalized anxiety disorder; M54.50 Low back pain, unspecified; I95.9 Hypotension, unspecified; G80.9 Cerebral palsy, unspecified; G89.4 Chronic pain syndrome; I11.0 Hypertensive heart disease with heart failure; N32.81 Overactive bladder; Z80.1 Family history of malignant neoplasm of trachea, bronchus and lung; Z82.0 Family history of epilepsy and other diseases of the nervous system; Z85.118 Personal history of other malignant neoplasm of bronchus and lung
CPT/HCPCS: 36415; 70450; 71045; 80053; 80305; 80320; 81001; 82140; 83735; 83880; 84100; 84132; 84439; 84443; 84481; 84484; 85025; 85610; 85730; 87088; 99285; A4349; G0378; J1644; J2270; J3480; J7030

== ENCOUNTER 2023-09-17 12:50 | Inpatient (IN) | payer MEDICARE, BC, MEDICAID ==
[~2023-09-17] VITALS: Ht 172.7 cm; Wt 118.4 kg
[2023-09-17 14:02] LABS: BASOPHILS # (AUTO) 0.1 X10'3 (0-0.2); BASOPHILS % (AUTO) 0.8 % (0-1); EOSINOPHILS # (AUTO) 0.5 X10'3 (0-0.9); EOSINOPHILS % (AUTO) 6.2 % (0-6); LYMPHOCYTES # (AUTO) 1.4 X10'3 (1.1-4.8); LYMPHOCYTES % (AUTO) 19.1 % (21-51); MEAN CORPUSCULAR HEMOGLOBIN 29.2 PG (27.0-31.0); MEAN CORPUSCULAR HGB CONC 32.4 g/dL (33.0-36.5); MEAN CORPUSCULAR VOLUME 90.3 FL (78-98); NEUTROPHILS # (AUTO) 4.5 X10'3 (1.8-7.7); NEUTROPHILS % (AUTO) 60.9 % (42-75); PLATELET COUNT 272 X10'3 (140-440); RED CELL DISTRIBUTION WIDTH 15.4 % (11.5-14.5); WHITE BLOOD COUNT 7.3 X10'3 (4.5-11.0)
[2023-09-17 15:10] LABS: ANION GAP 8 (8-16); BLOOD UREA NITROGEN 22 MG/DL (7-18); BUN/CREATININE RATIO 36.7 (10.0-20.0); CALCIUM 7.1 MG/DL (8.5-10.1); CHLORIDE 111 MMOL/L (99-107); GLUCOSE 70 MG/DL (70-104); POTASSIUM 3.7 MMOL/L (3.5-5.1); PRO BRAIN NATRIURETIC PEPTIDE 61 PG/ML (0-125); SODIUM 147 MMOL/L (135-145); TOTAL CARBON DIOXIDE 27.9 MMOL/L (24-32); eCRCL 111 ML/MIN; eGFR > 90 ML/MIN
[2023-09-17] MEDS: normal saline 1000ml 1,000 ML IV ONE (19:15)
[2023-09-17] MEDS: dexamethasone sod phosphate 10mg/ml inj IV STA (19:23)
[2023-09-17] MEDS: morphine 4 MG/ML inj SYRINge IV ONE (19:24)
[2023-09-17] MEDS ORDERED: magnesium hydroxide 30ml (MOM) UD suspension PO PRN (21:00)
[2023-09-17] MEDS ORDERED: magnesium 4gm in 100ml NS 100 ML IV PRN (21:00)
[2023-09-17] MEDS ORDERED: ondansetron/PF 4mg/2ml inj IV PRN (21:00)
[2023-09-17] MEDS ORDERED: mag hydrox/Alum hydrox/simeth 30ml oral suspension PO PRN (21:00)
[2023-09-17] MEDS ORDERED: potassium Cl 20 mEq SR tablet PO PRN ×2 (21:00)
[2023-09-17] MEDS ORDERED: morphine 2 MG/ML inj. syringe IV PRN (21:00)
[2023-09-17] MEDS ORDERED: acetaminophen 325mg tablet PO PRN ×2 (21:00)
[2023-09-17] MEDS ORDERED: potassium Cl 40MEQ/1/2NS 520ml 520 ML IV PRN (21:00)
[2023-09-17] MEDS ORDERED: HYDROcodone/acetaminophen 5mg/325mg tablet PO PRN (21:00)
[2023-09-17] MEDS ORDERED: magnesium Cl slow-release 64mg tablet PO PRN (21:00)
[2023-09-17] MEDS ORDERED: magnesium 2GM in 50ml NS 50 ML IV PRN (21:00)
[2023-09-17 21:09] LABS: ALANINE AMINOTRANSFERASE 16 U/L (12-78); ALBUMIN/GLOBULIN RATIO 0.9 (1.1-1.5); ALKALINE PHOSPHATASE 74 IU/L (46-116); ANION GAP 2 (8-16); ASPARTATE AMINO TRANSFERASE 16 U/L (10-37); BILIRUBIN,TOTAL 0.3 MG/DL (0.1-1.0); BLOOD UREA NITROGEN 23 MG/DL (7-18); BUN/CREATININE RATIO 37.1 (10.0-20.0); CALCIUM 8.2 MG/DL (8.5-10.1); CHLORIDE 109 MMOL/L (99-107); CREATININE 0.62 MG/DL (0.60-1.10); GLUCOSE 103 MG/DL (70-104); SODIUM 145 MMOL/L (135-145); TOTAL CARBON DIOXIDE 33.6 MMOL/L (24-32); TOTAL PROTEIN 6.4 G/DL (6.4-8.2); eCRCL 107 ML/MIN; eGFR > 90 ML/MIN
[2023-09-18] VITALS (11 sets, daily range): BP systolic 104–167; BP diastolic 41–103; PULSE 59–88; RESP 12–20; TEMP 97–98.1; O2SAT 92–96
[2023-09-18] MEDS: HYDROcodone/acetaminophen 10/325mg tab PO PRN (00:33)
[2023-09-18 00:36] LABS: BILIRUBIN,URINE NEGATIVE (Neg); CLARITY,URINE CLOUDY (Clear); COLOR,URINE YELLOW (Yellow); GLUCOSE, URINE NEGATIVE (Neg); KETONES,URINE NEGATIVE (Neg); LEUKOCYTE ESTERASE ,URINE NEGATIVE (Neg); NITRITES, URINE NEGATIVE (Neg); OCCULT BLOOD,URINE NEGATIVE (Neg); PROTEIN,URINE NEGATIVE (Neg); UROBILINOGEN,URINE 0.2 E.U/dL (0.2-1.0)
[2023-09-18 00:37] LABS: UA COLLECTION TYPE VOIDED
[2023-09-18 00:43] LABS: RBC,URINE 0-2 /HPF (0-2)
[2023-09-18 00:44] LABS: BACTERIA,URINE 4+ /HPF (Neg); MUCUS STRANDS FEW /LPF (Neg); SQUAMOUS EPITHELIAL CELL,UR FEW /LPF (FEW)
[2023-09-18 01:04] LABS: URINE AMPHETAMINE SCREEN NEGATIVE (Neg); URINE BARBITUATE SCREEN NEGATIVE (Neg); URINE BENZODIAZEPINES SCREEN POSITIVE (Neg); URINE CANNABINOID SCREEN NEGATIVE (Neg); URINE COCAINE SCREEN NEGATIVE (Neg); URINE METHADONE SCREEN NEGATIVE (Neg); URINE OPIATE SCREEN POSITIVE (Neg); URINE PHENCYCLIDINE SCREEN NEGATIVE (Neg)
[2023-09-18] MEDS: ringers solution, lacted 1,000 ML IV SCH (01:11)
[2023-09-18 06:15] LABS: HEMOGLOBIN 12.4 g/dl (14.0-17.9); MEAN CORPUSCULAR HEMOGLOBIN 29.3 PG (27.0-31.0)
[2023-09-18 06:19] LABS: BASOPHILS % (AUTO) 0.4 % (0-1); EOSINOPHILS % (AUTO) 0.1 % (0-6); HEMATOCRIT 37.8 % (42.0-52.0); LYMPHOCYTES # (AUTO) 0.8 X10'3 (1.1-4.8); MEAN CORPUSCULAR HGB CONC 32.7 g/dL (33.0-36.5); MEAN CORPUSCULAR VOLUME 89.4 FL (78-98); MEAN PLATELET VOLUME 8.6 FL (7.4-10.4); MONOCYTES # (AUTO) 0.1 X10'3 (0-0.9); MONOCYTES % (AUTO) 1.2 % (2-12); NEUTROPHILS # (AUTO) 5.6 X10'3 (1.8-7.7); NEUTROPHILS % (AUTO) 86.3 % (42-75); PLATELET COUNT 293 X10'3 (140-440); RED BLOOD COUNT 4.22 X10'6 (4.70-6.10); RED CELL DISTRIBUTION WIDTH 15.1 % (11.5-14.5); WHITE BLOOD COUNT 6.5 X10'3 (4.5-11.0)
[2023-09-18 06:22] LABS: HEMOGLOBIN A1C 5.7 % (4.5-6.2)
[2023-09-18 06:29] LABS: APTT 34 SECONDS (22-32); PROTHROMBIN TIME 10.6 SECONDS (9.0-12.0)
[2023-09-18 06:43] LABS: ALANINE AMINOTRANSFERASE 16 U/L (12-78); ALBUMIN/GLOBULIN RATIO 0.8 (1.1-1.5); ALKALINE PHOSPHATASE 78 IU/L (46-116); ANION GAP 7 (8-16); ASPARTATE AMINO TRANSFERASE 11 U/L (10-37); BILIRUBIN,TOTAL 0.3 MG/DL (0.1-1.0); BLOOD UREA NITROGEN 23 MG/DL (7-18); BUN/CREATININE RATIO 33.3 (10.0-20.0); CALCIUM 8.5 MG/DL (8.5-10.1); CHLORIDE 106 MMOL/L (99-107); CHOL/HDL RATIO 2.5 (0.00-4.99); CHOLESTEROL 152 MG/DL (0-200); CREATININE 0.69 MG/DL (0.60-1.10); FREE T4 (FREE THYROXINE) 0.68 NG/DL (0.73-1.40); GLUCOSE 148 MG/DL (70-104); HDL CHOLESTEROL 62 MG/DL (35-60); LDL CHOLESTEROL 76 MG/DL (50-100); MAGNESIUM 2.2 MG/DL (1.5-2.4); PHOSPHORUS 2.8 MG/DL (2.3-4.5); POTASSIUM 4.3 MMOL/L (3.5-5.1); SODIUM 140 MMOL/L (135-145); THYROID STIMULATING HORMONE 2.72 ulU/ml (0.34-4.50); TOTAL CARBON DIOXIDE 26.8 MMOL/L (24-32); TOTAL PROTEIN 6.8 G/DL (6.4-8.2); TRIGLYCERIDES 54 MG/DL (20-135); eCRCL 96 ML/MIN; eGFR > 90 ML/MIN
[2023-09-18] MEDS: docusate sod 100mg capsule PO SCH (07:52)
[2023-09-18] MEDS: pantoprazole 40mg Tablet.DR PO SCH (07:52)
[2023-09-18] MEDS: enoxaparin 40mg/0.4ml syringe SUBCUT SCH (07:53)
[2023-09-18] MEDS: K and/or MAG REPLACEMENT MC SCH (08:00)
[2023-09-18] MEDS: atorvastatin 20mg tablet PO SCH (21:10)
[2023-09-19] VITALS (11 sets, daily range): BP systolic 101–155; BP diastolic 47–112; PULSE 11–74; RESP 14–18; TEMP 97.4–98.7; O2SAT 94–98
[2023-09-19] MEDS: pantoprazole 40mg Tablet.DR PO SCH (08:00)
[2023-09-19 08:39] LABS: BASOPHILS % (AUTO) 0.1 % (0-1); EOSINOPHILS % (AUTO) 0.1 % (0-6); HEMATOCRIT 33.7 % (42.0-52.0); HEMOGLOBIN 11.2 g/dl (14.0-17.9); LYMPHOCYTES # (AUTO) 1.6 X10'3 (1.1-4.8); LYMPHOCYTES % (AUTO) 14.2 % (21-51); MEAN CORPUSCULAR HEMOGLOBIN 29.7 PG (27.0-31.0); MEAN CORPUSCULAR HGB CONC 33.3 g/dL (33.0-36.5); MEAN CORPUSCULAR VOLUME 89.1 FL (78-98); MEAN PLATELET VOLUME 9.1 FL (7.4-10.4); MONOCYTES # (AUTO) 0.8 X10'3 (0-0.9); NEUTROPHILS # (AUTO) 8.8 X10'3 (1.8-7.7); NEUTROPHILS % (AUTO) 78.6 % (42-75); PLATELET COUNT 267 X10'3 (140-440); RED BLOOD COUNT 3.78 X10'6 (4.70-6.10); RED CELL DISTRIBUTION WIDTH 14.9 % (11.5-14.5); WHITE BLOOD COUNT 11.2 X10'3 (4.5-11.0)
[2023-09-19 08:52] LABS: APTT 31 SECONDS (22-32); PROTHROMBIN TIME 10.6 SECONDS (9.0-12.0)
[2023-09-19] MEDS: levoTHYROXINE 88mcg tablet PO SCH (09:00)
[2023-09-19] MEDS: cyanocobalamin 500mcg tablet PO SCH (09:01)
[2023-09-19 10:56] LABS: ALANINE AMINOTRANSFERASE 15 U/L (12-78); ALBUMIN 2.9 G/DL (3.4-5.0); ALBUMIN/GLOBULIN RATIO 0.9 (1.1-1.5); ALKALINE PHOSPHATASE 62 IU/L (46-116); ANION GAP 6 (8-16); ASPARTATE AMINO TRANSFERASE 9 U/L (10-37); BILIRUBIN,TOTAL 0.2 MG/DL (0.1-1.0); BLOOD UREA NITROGEN 20 MG/DL (7-18); BUN/CREATININE RATIO 31.7 (10.0-20.0); CALCIUM 8.5 MG/DL (8.5-10.1); CHLORIDE 106 MMOL/L (99-107); CREATININE 0.63 MG/DL (0.60-1.10); GLUCOSE 110 MG/DL (70-104); MAGNESIUM 2.2 MG/DL (1.5-2.4); SODIUM 140 MMOL/L (135-145); TOTAL CARBON DIOXIDE 27.9 MMOL/L (24-32); TOTAL PROTEIN 6.3 G/DL (6.4-8.2); eCRCL 106 ML/MIN; eGFR > 90 ML/MIN
[2023-09-20] VITALS (8 sets, daily range): BP systolic 116–146; BP diastolic 51–70; PULSE 40–79; RESP 14–17; TEMP 97.8–98.4; O2SAT 96–98
[2023-09-20 07:36] LABS: BASOPHILS # (AUTO) 0.1 X10'3 (0-0.2); BASOPHILS % (AUTO) 1.2 % (0-1); EOSINOPHILS # (AUTO) 0.1 X10'3 (0-0.9); EOSINOPHILS % (AUTO) 1.8 % (0-6); HEMATOCRIT 34.3 % (42.0-52.0); HEMOGLOBIN 11.3 g/dl (14.0-17.9); LYMPHOCYTES # (AUTO) 3.2 X10'3 (1.1-4.8); LYMPHOCYTES % (AUTO) 45.3 % (21-51); MEAN CORPUSCULAR HEMOGLOBIN 29.3 PG (27.0-31.0); MEAN CORPUSCULAR HGB CONC 32.8 g/dL (33.0-36.5); MEAN CORPUSCULAR VOLUME 89.4 FL (78-98); MEAN PLATELET VOLUME 8.7 FL (7.4-10.4); MONOCYTES # (AUTO) 0.7 X10'3 (0-0.9); MONOCYTES % (AUTO) 9.7 % (2-12); PLATELET COUNT 240 X10'3 (140-440); RED BLOOD COUNT 3.84 X10'6 (4.70-6.10); RED CELL DISTRIBUTION WIDTH 15.2 % (11.5-14.5); WHITE BLOOD COUNT 7.1 X10'3 (4.5-11.0)
[2023-09-20 07:45] LABS: APTT 31 SECONDS (22-32); PROTHROMBIN TIME 10.9 SECONDS (9.0-12.0)
[2023-09-20 07:51] LABS: ALANINE AMINOTRANSFERASE 15 U/L (12-78); ALBUMIN 2.9 G/DL (3.4-5.0); ALBUMIN/GLOBULIN RATIO 0.9 (1.1-1.5); ALKALINE PHOSPHATASE 60 IU/L (46-116); ANION GAP 3 (8-16); ASPARTATE AMINO TRANSFERASE 16 U/L (10-37); BILIRUBIN,TOTAL 0.1 MG/DL (0.1-1.0); BLOOD UREA NITROGEN 18 MG/DL (7-18); BUN/CREATININE RATIO 28.1 (10.0-20.0); CHLORIDE 108 MMOL/L (99-107); CREATININE 0.64 MG/DL (0.60-1.10); GLUCOSE 88 MG/DL (70-104); PHOSPHORUS 2.9 MG/DL (2.3-4.5); POTASSIUM 3.8 MMOL/L (3.5-5.1); SODIUM 143 MMOL/L (135-145); TOTAL CARBON DIOXIDE 31.8 MMOL/L (24-32); eCRCL 104 ML/MIN; eGFR > 90 ML/MIN
[2023-09-20] MEDS: furosemide 40mg/4ml inj IV ONE (14:12)
[2023-09-21] VITALS (7 sets, daily range): BP systolic 106–143; BP diastolic 60–83; PULSE 49–92; RESP 12–18; TEMP 96.7–98.4; O2SAT 94–97
[2023-09-21 06:12] LABS: BASOPHILS # (AUTO) 0.1 X10'3 (0-0.2); BASOPHILS % (AUTO) 0.9 % (0-1); EOSINOPHILS # (AUTO) 0.3 X10'3 (0-0.9); EOSINOPHILS % (AUTO) 3.9 % (0-6); HEMATOCRIT 37.4 % (42.0-52.0); HEMOGLOBIN 12.4 g/dl (14.0-17.9); LYMPHOCYTES # (AUTO) 2.9 X10'3 (1.1-4.8); LYMPHOCYTES % (AUTO) 35.6 % (21-51); MEAN CORPUSCULAR HEMOGLOBIN 29.3 PG (27.0-31.0); MEAN CORPUSCULAR HGB CONC 33.1 g/dL (33.0-36.5); MEAN CORPUSCULAR VOLUME 88.5 FL (78-98); MEAN PLATELET VOLUME 8.5 FL (7.4-10.4); MONOCYTES # (AUTO) 0.8 X10'3 (0-0.9); MONOCYTES % (AUTO) 10.6 % (2-12); NEUTROPHILS # (AUTO) 3.9 X10'3 (1.8-7.7); PLATELET COUNT 262 X10'3 (140-440); RED BLOOD COUNT 4.23 X10'6 (4.70-6.10); RED CELL DISTRIBUTION WIDTH 14.8 % (11.5-14.5)
[2023-09-21 06:17] LABS: PROTHROMBIN TIME 10.9 SECONDS (9.0-12.0)
[2023-09-21 06:24] LABS: ALANINE AMINOTRANSFERASE 20 U/L (12-78); ALBUMIN 2.9 G/DL (3.4-5.0); ALBUMIN/GLOBULIN RATIO 0.9 (1.1-1.5); ALKALINE PHOSPHATASE 64 IU/L (46-116); ANION GAP 8 (8-16); ASPARTATE AMINO TRANSFERASE 15 U/L (10-37); BILIRUBIN,TOTAL 0.3 MG/DL (0.1-1.0); BLOOD UREA NITROGEN 11 MG/DL (7-18); BUN/CREATININE RATIO 16.2 (10.0-20.0); CALCIUM 8.2 MG/DL (8.5-10.1); CHLORIDE 106 MMOL/L (99-107); CREATININE 0.68 MG/DL (0.60-1.10); GLUCOSE 86 MG/DL (70-104); PHOSPHORUS 3.7 MG/DL (2.3-4.5); POTASSIUM 3.7 MMOL/L (3.5-5.1); SODIUM 142 MMOL/L (135-145); TOTAL CARBON DIOXIDE 28.2 MMOL/L (24-32); TOTAL PROTEIN 6.1 G/DL (6.4-8.2); eCRCL 98 ML/MIN; eGFR > 90 ML/MIN
[2023-09-21] MEDS: furosemide 40mg/4ml inj IV SCH (08:12)
[2023-09-21] MEDS: LIDOcaine 5% patch TP SCH (19:56)
[2023-09-22] VITALS (8 sets, daily range): BP systolic 102–139; BP diastolic 62–91; PULSE 57–88; RESP 16–20; TEMP 97.6–98.1; O2SAT 96–98
[2023-09-22 06:45] LABS: BASOPHILS % (AUTO) 0.5 % (0-1); EOSINOPHILS # (AUTO) 0.3 X10'3 (0-0.9); EOSINOPHILS % (AUTO) 2.9 % (0-6); HEMATOCRIT 41.1 % (42.0-52.0); HEMOGLOBIN 14.1 g/dl (14.0-17.9); LYMPHOCYTES % (AUTO) 23.1 % (21-51); MEAN CORPUSCULAR HEMOGLOBIN 30.1 PG (27.0-31.0); MEAN CORPUSCULAR HGB CONC 34.2 g/dL (33.0-36.5); MEAN CORPUSCULAR VOLUME 87.8 FL (78-98); MEAN PLATELET VOLUME 8.5 FL (7.4-10.4); MONOCYTES # (AUTO) 0.8 X10'3 (0-0.9); MONOCYTES % (AUTO) 8.7 % (2-12); NEUTROPHILS # (AUTO) 5.7 X10'3 (1.8-7.7); NEUTROPHILS % (AUTO) 64.8 % (42-75); PLATELET COUNT 288 X10'3 (140-440); RED BLOOD COUNT 4.68 X10'6 (4.70-6.10); RED CELL DISTRIBUTION WIDTH 14.8 % (11.5-14.5); WHITE BLOOD COUNT 8.8 X10'3 (4.5-11.0)
[2023-09-22 07:00] LABS: INR 1.1 INR; PROTHROMBIN TIME 11.4 SECONDS (9.0-12.0)
[2023-09-22 07:21] LABS: ALANINE AMINOTRANSFERASE 25 U/L (12-78); ALBUMIN 3.3 G/DL (3.4-5.0); ALBUMIN/GLOBULIN RATIO 0.9 (1.1-1.5); ALKALINE PHOSPHATASE 74 IU/L (46-116); ANION GAP 10 (8-16); ASPARTATE AMINO TRANSFERASE 15 U/L (10-37); BILIRUBIN,TOTAL 0.4 MG/DL (0.1-1.0); BLOOD UREA NITROGEN 12 MG/DL (7-18); BUN/CREATININE RATIO 16.9 (10.0-20.0); CALCIUM 8.6 MG/DL (8.5-10.1); CHLORIDE 102 MMOL/L (99-107); CREATININE 0.71 MG/DL (0.60-1.10); GLUCOSE 99 MG/DL (70-104); MAGNESIUM 2.1 MG/DL (1.5-2.4); POTASSIUM 3.6 MMOL/L (3.5-5.1); SODIUM 140 MMOL/L (135-145); TOTAL CARBON DIOXIDE 28.2 MMOL/L (24-32); TOTAL PROTEIN 6.9 G/DL (6.4-8.2); eCRCL 94 ML/MIN; eGFR > 90 ML/MIN
[2023-09-22] MEDS: morphine 2 MG/ML inj. syringe IV PRN (07:38)
[2023-09-22] MEDS: LIDOcaine 5% patch TP SCH (19:06)
[2023-09-23] VITALS (7 sets, daily range): BP systolic 103–131; BP diastolic 71–82; PULSE 76–131; RESP 16–18; TEMP 97.7–97.9; O2SAT 94–99
[2023-09-24] VITALS (8 sets, daily range): BP systolic 107–148; BP diastolic 51–88; PULSE 69–105; RESP 12–20; TEMP 96.8–97.8; O2SAT 93–97
[2023-09-24 12:26] LABS: BASOPHILS # (AUTO) 0.1 X10'3 (0-0.2); BASOPHILS % (AUTO) 0.6 % (0-1); EOSINOPHILS # (AUTO) 0.4 X10'3 (0-0.9); EOSINOPHILS % (AUTO) 3.7 % (0-6); HEMATOCRIT 44.6 % (42.0-52.0); HEMOGLOBIN 14.8 g/dl (14.0-17.9); LYMPHOCYTES # (AUTO) 2.4 X10'3 (1.1-4.8); LYMPHOCYTES % (AUTO) 22.9 % (21-51); MEAN CORPUSCULAR HEMOGLOBIN 29.5 PG (27.0-31.0); MEAN CORPUSCULAR HGB CONC 33.1 g/dL (33.0-36.5); MEAN CORPUSCULAR VOLUME 89.3 FL (78-98); MEAN PLATELET VOLUME 8.5 FL (7.4-10.4); MONOCYTES # (AUTO) 1.2 X10'3 (0-0.9); MONOCYTES % (AUTO) 11.1 % (2-12); NEUTROPHILS # (AUTO) 6.5 X10'3 (1.8-7.7); NEUTROPHILS % (AUTO) 61.7 % (42-75); PLATELET COUNT 301 X10'3 (140-440); RED CELL DISTRIBUTION WIDTH 15.2 % (11.5-14.5); WHITE BLOOD COUNT 10.5 X10'3 (4.5-11.0)
[2023-09-24 12:32] LABS: ALANINE AMINOTRANSFERASE 24 U/L (12-78); ALBUMIN 3.6 G/DL (3.4-5.0); ALKALINE PHOSPHATASE 81 IU/L (46-116); ANION GAP 8 (8-16); ASPARTATE AMINO TRANSFERASE 15 U/L (10-37); BILIRUBIN,TOTAL 0.2 MG/DL (0.1-1.0); BLOOD UREA NITROGEN 14 MG/DL (7-18); BUN/CREATININE RATIO 15.9 (10.0-20.0); CALCIUM 8.6 MG/DL (8.5-10.1); CHLORIDE 99 MMOL/L (99-107); CREATININE 0.88 MG/DL (0.60-1.10); GLUCOSE 111 MG/DL (70-104); POTASSIUM 3.7 MMOL/L (3.5-5.1); SODIUM 141 MMOL/L (135-145); TOTAL CARBON DIOXIDE 33.9 MMOL/L (24-32); TOTAL PROTEIN 7.3 G/DL (6.4-8.2); eCRCL 76 ML/MIN; eGFR 86 ML/MIN
[2023-09-24] MEDS ORDERED: HYDROcodone/acetaminophen 5mg/325mg tablet PO PRN (17:30)
[2023-09-24] MEDS ORDERED: morphine 2 MG/ML inj. syringe IV PRN ×2 (17:30)
[2023-09-25] MEDS: HYDROcodone/acetaminophen 10/325mg tab PO PRN (00:42)
[2023-09-25 06:00] VITALS: BP 113/65; PULSE 71; RESP 15; TEMP 98.3; O2SAT 95
[2023-09-25 08:00] VITALS: BP_SYST 124; BP_SYST 129; BP_SYST 149; BP_DIAS 73; BP_DIAS 76; BP_DIAS 90; PULSE 68; PULSE 71; PULSE 78
[2023-09-25 10:00] VITALS: BP 130/68; PULSE 83; RESP 16; TEMP 97.3; O2SAT 96
[2023-09-25 18:00] VITALS: BP 135/69; PULSE 78; RESP 15; TEMP 97.8; O2SAT 74
[2023-09-25 20:00] VITALS: BP_SYST 131; BP_SYST 157; BP_DIAS 59; BP_DIAS 69; PULSE 16
[2023-09-25 22:00] VITALS: BP 117/58; PULSE 74; RESP 18; TEMP 98.2; O2SAT 95
[2023-09-26 06:00] VITALS: BP 108/62; PULSE 74; RESP 19; TEMP 96.4; O2SAT 94
[2023-09-26 10:00] VITALS: BP 111/65; PULSE 86; RESP 14; TEMP 97.8; O2SAT 95
[2023-09-26 14:22] LABS: BASOPHILS # (AUTO) 0.1 X10'3 (0-0.2); BASOPHILS % (AUTO) 0.7 % (0-1); EOSINOPHILS # (AUTO) 0.2 X10'3 (0-0.9); EOSINOPHILS % (AUTO) 2.6 % (0-6); HEMATOCRIT 44.3 % (42.0-52.0); HEMOGLOBIN 14.6 g/dl (14.0-17.9); LYMPHOCYTES # (AUTO) 2.4 X10'3 (1.1-4.8); LYMPHOCYTES % (AUTO) 25.7 % (21-51); MEAN CORPUSCULAR HEMOGLOBIN 29.2 PG (27.0-31.0); MEAN CORPUSCULAR HGB CONC 32.9 g/dL (33.0-36.5); MEAN CORPUSCULAR VOLUME 88.9 FL (78-98); MEAN PLATELET VOLUME 8.8 FL (7.4-10.4); MONOCYTES # (AUTO) 0.8 X10'3 (0-0.9); MONOCYTES % (AUTO) 9.2 % (2-12); NEUTROPHILS # (AUTO) 5.7 X10'3 (1.8-7.7); NEUTROPHILS % (AUTO) 61.8 % (42-75); PLATELET COUNT 319 X10'3 (140-440); RED BLOOD COUNT 4.99 X10'6 (4.70-6.10); RED CELL DISTRIBUTION WIDTH 14.9 % (11.5-14.5); WHITE BLOOD COUNT 9.2 X10'3 (4.5-11.0)
[2023-09-26 14:53] LABS: ALBUMIN 3.6 G/DL (3.4-5.0); ANION GAP 11 (8-16); BILIRUBIN,TOTAL 0.3 MG/DL (0.1-1.0); BLOOD UREA NITROGEN 17 MG/DL (7-18); CHLORIDE 99 MMOL/L (99-107); CREATININE 0.85 MG/DL (0.60-1.10); GLUCOSE 146 MG/DL (70-104); POTASSIUM 3.1 MMOL/L (3.5-5.1); SODIUM 139 MMOL/L (135-145); TOTAL CARBON DIOXIDE 29.3 MMOL/L (24-32); TOTAL PROTEIN 7.2 G/DL (6.4-8.2); eCRCL 78 ML/MIN; eGFR 89 ML/MIN
[2023-09-26 14:54] LABS: ALANINE AMINOTRANSFERASE 24 U/L (12-78); ALKALINE PHOSPHATASE 85 IU/L (46-116); ASPARTATE AMINO TRANSFERASE 16 U/L (10-37)
[2023-09-26] MEDS ORDERED: potassium Cl 40MEQ/1/2NS 520ml 520 ML IV PRN (16:10)
[2023-09-26] MEDS ORDERED: magnesium 4gm in 100ml NS 100 ML IV PRN (16:10)
[2023-09-26] MEDS ORDERED: potassium Cl 20 mEq SR tablet PO PRN (16:10)
[2023-09-26] MEDS ORDERED: magnesium 2GM in 50ml NS 50 ML IV PRN (16:10)
[2023-09-26] MEDS: furosemide 40mg/4ml inj IV SCH (16:10)
[2023-09-26] MEDS ORDERED: magnesium Cl slow-release 64mg tablet PO PRN (16:10)
[2023-09-26] MEDS: potassium Cl 20 mEq SR tablet PO PRN (16:42)
[2023-09-26 18:00] VITALS: BP 132/69; PULSE 76; RESP 20; TEMP 97.4; O2SAT 94
[2023-09-26 22:00] VITALS: BP_SYST 108; BP_SYST 120; BP_DIAS 70; BP_DIAS 74; PULSE 75; PULSE 76; RESP 16; TEMP 97.8; O2SAT 94
[2023-09-27 06:00] VITALS: BP 116/50; PULSE 64; RESP 17; TEMP 97.7; O2SAT 96
[2023-09-27 08:00] VITALS: RESP 17; O2SAT 96
[2023-09-27 10:00] VITALS: BP_SYST 116; BP_SYST 123; BP_SYST 132; BP_DIAS 58; BP_DIAS 76; BP_DIAS 80; PULSE 75; PULSE 76; PULSE 94; RESP 18; TEMP 97.3; O2SAT 94
[2023-09-27 18:00] VITALS: BP 109/58; PULSE 69; RESP 18; TEMP 97.3; O2SAT 96
[2023-09-27 20:00] VITALS: RESP 18; O2SAT 96
[2023-09-27 22:00] VITALS: BP 123/57; PULSE 68; RESP 17; TEMP 96.8; O2SAT 96
[2023-09-28 06:00] VITALS: BP 125/68; PULSE 67; RESP 17; TEMP 98.1; O2SAT 97
[2023-09-28 08:00] VITALS: RESP 17; O2SAT 97
[2023-09-28 08:20] LABS: BASOPHILS # (AUTO) 0.1 X10'3 (0-0.2); BASOPHILS % (AUTO) 1.3 % (0-1); EOSINOPHILS # (AUTO) 0.3 X10'3 (0-0.9); EOSINOPHILS % (AUTO) 3.4 % (0-6); HEMATOCRIT 40.8 % (42.0-52.0); HEMOGLOBIN 13.6 g/dl (14.0-17.9); LYMPHOCYTES # (AUTO) 2.6 X10'3 (1.1-4.8); LYMPHOCYTES % (AUTO) 32.5 % (21-51); MEAN CORPUSCULAR HEMOGLOBIN 29.7 PG (27.0-31.0); MEAN CORPUSCULAR HGB CONC 33.2 g/dL (33.0-36.5); MEAN CORPUSCULAR VOLUME 89.2 FL (78-98); MEAN PLATELET VOLUME 8.5 FL (7.4-10.4); MONOCYTES # (AUTO) 0.8 X10'3 (0-0.9); MONOCYTES % (AUTO) 9.9 % (2-12); NEUTROPHILS # (AUTO) 4.2 X10'3 (1.8-7.7); NEUTROPHILS % (AUTO) 52.9 % (42-75); PLATELET COUNT 298 X10'3 (140-440); RED BLOOD COUNT 4.57 X10'6 (4.70-6.10); RED CELL DISTRIBUTION WIDTH 15.1 % (11.5-14.5)
[2023-09-28 10:25] LABS: ALANINE AMINOTRANSFERASE 25 U/L (12-78); ALBUMIN 3.5 G/DL (3.4-5.0); ALKALINE PHOSPHATASE 78 IU/L (46-116); ANION GAP 7 (8-16); ASPARTATE AMINO TRANSFERASE 14 U/L (10-37); BILIRUBIN,TOTAL 0.4 MG/DL (0.1-1.0); BLOOD UREA NITROGEN 15 MG/DL (7-18); BUN/CREATININE RATIO 18.5 (10.0-20.0); CALCIUM 8.4 MG/DL (8.5-10.1); CHLORIDE 103 MMOL/L (99-107); CREATININE 0.81 MG/DL (0.60-1.10); GLUCOSE 101 MG/DL (70-104); SODIUM 141 MMOL/L (135-145); TOTAL CARBON DIOXIDE 30.9 MMOL/L (24-32); eCRCL 82 ML/MIN; eGFR > 90 ML/MIN
[2023-09-28 18:00] VITALS: BP 129/56; PULSE 66; RESP 20; TEMP 98; O2SAT 97
[2023-09-28 20:00] VITALS: RESP 16; O2SAT 95
[2023-09-28 22:00] VITALS: BP 107/62; PULSE 64; RESP 16; TEMP 98.1; O2SAT 95
[2023-09-29 06:00] VITALS: BP 129/60; PULSE 77; RESP 16; TEMP 96.9; O2SAT 95
[2023-09-29 08:00] VITALS: RESP 16; O2SAT 95
[2023-09-29] MEDS: furosemide 20 MG/2 ML vial IV SCH (09:00)
[2023-09-29 10:00] VITALS: BP 131/65; PULSE 70; RESP 20; TEMP 97.8; O2SAT 95
[2023-09-29] MEDS: furosemide 20MG tablet PO ONE (12:00)
[2023-09-29 18:00] VITALS: BP 105/57; PULSE 67; RESP 18; TEMP 97.7; O2SAT 98
[2023-09-29 20:00] VITALS: RESP 18; O2SAT 98
[2023-09-29 22:00] VITALS: BP 119/63; PULSE 59; RESP 15; TEMP 97.4; O2SAT 92
[2023-09-29] MEDS: temazepam 15mg capsule PO PRN (22:09)
[2023-09-30 07:00] VITALS: BP 112/62; PULSE 55; RESP 12; TEMP 97.4; O2SAT 95
[2023-09-30] MEDS: furosemide 20MG tablet PO SCH ×2 (07:36→16:27)
[2023-09-30 11:00] VITALS: BP 125/62; PULSE 86; RESP 13; TEMP 97.6; O2SAT 94
[2023-09-30 11:06] LABS: HEMATOCRIT 39.9 % (42.0-52.0); HEMOGLOBIN 13.4 g/dl (14.0-17.9); MEAN CORPUSCULAR HEMOGLOBIN 29.7 PG (27.0-31.0); MEAN CORPUSCULAR HGB CONC 33.6 g/dL (33.0-36.5); MEAN CORPUSCULAR VOLUME 88.4 FL (78-98); MEAN PLATELET VOLUME 8.6 FL (7.4-10.4); PLATELET COUNT 319 X10'3 (140-440); RED BLOOD COUNT 4.51 X10'6 (4.70-6.10); RED CELL DISTRIBUTION WIDTH 15.1 % (11.5-14.5); WHITE BLOOD COUNT 7.9 X10'3 (4.5-11.0)
[2023-09-30 11:18] LABS: ALBUMIN 3.4 G/DL (3.4-5.0); ANION GAP 8 (8-16); BLOOD UREA NITROGEN 10 MG/DL (7-18); BUN/CREATININE RATIO 14.5 (10.0-20.0); CALCIUM 8.4 MG/DL (8.5-10.1); CHLORIDE 104 MMOL/L (99-107); CREATININE 0.69 MG/DL (0.60-1.10); GLUCOSE 92 MG/DL (70-104); MAGNESIUM 1.9 MG/DL (1.5-2.4); POTASSIUM 3.7 MMOL/L (3.5-5.1); SODIUM 141 MMOL/L (135-145); TOTAL CARBON DIOXIDE 29.5 MMOL/L (24-32); eCRCL 96 ML/MIN; eGFR > 90 ML/MIN
[2023-09-30 18:00] VITALS: BP 130/70; PULSE 69; RESP 14; TEMP 97.1; O2SAT 94
[2023-09-30 20:00] VITALS: RESP 14; O2SAT 94
[2023-09-30 22:00] VITALS: BP 124/61; PULSE 60; RESP 14; TEMP 98.2; O2SAT 96
[2023-10-01 06:45] LABS: HEMATOCRIT 38.5 % (42.0-52.0); HEMOGLOBIN 12.9 g/dl (14.0-17.9); MEAN CORPUSCULAR HEMOGLOBIN 29.5 PG (27.0-31.0); MEAN CORPUSCULAR HGB CONC 33.4 g/dL (33.0-36.5); MEAN CORPUSCULAR VOLUME 88.3 FL (78-98); MEAN PLATELET VOLUME 8.4 FL (7.4-10.4); PLATELET COUNT 289 X10'3 (140-440); RED BLOOD COUNT 4.37 X10'6 (4.70-6.10); RED CELL DISTRIBUTION WIDTH 14.9 % (11.5-14.5); WHITE BLOOD COUNT 7.4 X10'3 (4.5-11.0)
[2023-10-01 06:52] LABS: ALBUMIN 3.3 G/DL (3.4-5.0); ANION GAP 7 (8-16); BLOOD UREA NITROGEN 11 MG/DL (7-18); BUN/CREATININE RATIO 14.7 (10.0-20.0); CALCIUM 8.3 MG/DL (8.5-10.1); CHLORIDE 105 MMOL/L (99-107); CREATININE 0.75 MG/DL (0.60-1.10); GLUCOSE 98 MG/DL (70-104); POTASSIUM 3.7 MMOL/L (3.5-5.1); SODIUM 143 MMOL/L (135-145); TOTAL CARBON DIOXIDE 31.3 MMOL/L (24-32); eCRCL 89 ML/MIN; eGFR > 90 ML/MIN
[2023-10-01 06:54] VITALS: BP 113/65; PULSE 62; RESP 18; TEMP 97.4; O2SAT 96
[2023-10-01 08:47] VITALS: RESP 16; O2SAT 94
[2023-10-01 09:45] VITALS: RESP 18
[2023-10-01] MEDS ORDERED: FURO20TA4 PO (14:19)
[2023-10-01] MEDS ORDERED: LIDO700A47 TP (14:19)
== END 2023-10-01 16:48 | disposition home health service (06) | DRG 551 ==
LOC: ER 12:51 → ED HOLD 20:59 → ORTHO 4S 09-18 02:00
PROVIDERS: ADMIT Family Medicine; ATTEND Internal Medicine
DX: S32.028A Other fracture of second lumbar vertebra, initial encounter for closed fracture (principal); R53.2 Functional quadriplegia; Z68.41 Body mass index [BMI] 40.0-44.9, adult; E03.9 Hypothyroidism, unspecified; G80.9 Cerebral palsy, unspecified; Z20.822 Contact with and (suspected) exposure to COVID-19; G89.4 Chronic pain syndrome; E66.01 Morbid (severe) obesity due to excess calories; W18.39XA Other fall on same level, initial encounter; K21.9 Gastro-esophageal reflux disease without esophagitis; R62.7 Adult failure to thrive; M48.061 Spinal stenosis, lumbar region without neurogenic claudication; Z79.899 Other long term (current) drug therapy; Y93.89 Activity, other specified; Y92.89 Other specified places as the place of occurrence of the external cause; Y99.8 Other external cause status
CPT/HCPCS: 36415; 70450; 71045; 72131; 80048; 80053; 80061; 80305; 81001; 83036; 83735; 83880; 84100; 84145; 84439; 84443; 84484; 85025; 85027; 85610; 85651; 85730; 86140; 87081; 87502; 87503; 87811; 93005; 93306; 96374; 96375; 97110; 97116; 97161; 97530; 97535; 99285; A4349; A6212; G0378; J1100; J1650; J1940; J2270; J3490; J7030; J7120

== ENCOUNTER 2024-04-28 15:10 | Emergency (ER) | payer MEDICARE, BC ==
[~2024-04-28 15:10] MED LIST changes: -ALPR0.5T8 PO; +FURO20TA4 PO; -GABA600T13 PO; +LACT1CAP26 PO; +LIDO700A47 TP; -LOPE2CAP PO; -OXYB15TA19 PO; +OXYB5TAB21 PO
[2024-04-28] MEDS ORDERED: dexamethasone sod phosphate 10mg/ml inj IM STA (15:42)
[2024-04-28] MEDS ORDERED: TRIA15CR61 TOP (15:49)
[2024-04-28 16:26] VITALS: BP 132/78; PULSE 78; RESP 18; TEMP 97.8; O2SAT 99
== END 2024-04-28 16:36 | disposition home or self-care (01) ==
LOC: ER 15:18
DX: L23.7 Allergic contact dermatitis due to plants, except food (principal); G89.29 Other chronic pain; Z79.899 Other long term (current) drug therapy
CPT/HCPCS: 99283

== ENCOUNTER 2024-06-16 11:48 | Emergency (ER) | payer MEDICARE, BC ==
[~2024-06-16] VITALS: Ht 172.7 cm; Wt 95.5 kg
[2024-06-16 11:50] VITALS: TEMP 97.8
[2024-06-16 12:19] LABS: BASOPHILS # (AUTO) 0.1 X10'3 (0-0.2); EOSINOPHILS # (AUTO) 0.1 X10'3 (0-0.9); EOSINOPHILS % (AUTO) 2.1 % (0-6); HEMATOCRIT 42.6 % (42.0-52.0); HEMOGLOBIN 14.1 g/dl (14.0-17.9); LYMPHOCYTES # (AUTO) 1.5 X10'3 (1.1-4.8); LYMPHOCYTES % (AUTO) 23.2 % (21-51); MEAN CORPUSCULAR VOLUME 90.8 FL (78-98); MEAN PLATELET VOLUME 8.8 FL (7.4-10.4); MONOCYTES # (AUTO) 0.6 X10'3 (0-0.9); MONOCYTES % (AUTO) 9.7 % (2-12); NEUTROPHILS # (AUTO) 4.2 X10'3 (1.8-7.7); PLATELET COUNT 281 X10'3 (140-440); RED CELL DISTRIBUTION WIDTH 15.1 % (11.5-14.5); WHITE BLOOD COUNT 6.6 X10'3 (4.5-11.0)
[2024-06-16 12:38] LABS: ALANINE AMINOTRANSFERASE 15 U/L (12-78); ALBUMIN 3.7 G/DL (3.4-5.0); ALBUMIN/GLOBULIN RATIO 1.2 (1.1-1.5); ALKALINE PHOSPHATASE 73 IU/L (46-116); ANION GAP 9 (8-16); ASPARTATE AMINO TRANSFERASE 13 U/L (10-37); BILIRUBIN,TOTAL 0.6 MG/DL (0.1-1.0); BLOOD UREA NITROGEN 14 MG/DL (7-18); BUN/CREATININE RATIO 22.2 (10.0-20.0); CHLORIDE 105 MMOL/L (99-107); CREATININE 0.63 MG/DL (0.60-1.10); GLUCOSE 93 MG/DL (70-104); LIPASE 20 U/L (16-77); SODIUM 142 MMOL/L (135-145); TOTAL CARBON DIOXIDE 28.3 MMOL/L (24-32); TOTAL PROTEIN 6.8 G/DL (6.4-8.2); eCRCL 104 ML/MIN; eGFR > 90 ML/MIN
[2024-06-16] MEDS ORDERED: iohexol 300mg/ml 100ml inj. ONE (14:57)
[2024-06-16 16:25] VITALS: BP 155/96; PULSE 87; RESP 18; O2SAT 96
[2024-06-16] MEDS ORDERED: DIPH-186 PO (16:30)
== END 2024-06-16 17:00 | disposition home or self-care (01) ==
LOC: ER 11:48
DX: R19.7 Diarrhea, unspecified (principal); G89.29 Other chronic pain; Z79.899 Other long term (current) drug therapy
CPT/HCPCS: 36415; 74177; 80053; 83690; 85025; 99285; Q9967

== ENCOUNTER 2024-11-12 16:30 | Outpatient (CLI) | payer MEDICARE, BC ==
[~2024-11-12 16:30] MED LIST changes: +DIPH-186 PO
== END 2024-11-12 23:59 | disposition home or self-care (01) ==
LOC: MRI02 16:30
PROVIDERS: ATTEND Family Medicine
DX: M47.26 Other spondylosis with radiculopathy, lumbar region (principal); M54.42 Lumbago with sciatica, left side; M48.061 Spinal stenosis, lumbar region without neurogenic claudication
CPT/HCPCS: 72148